=== PATIENT | female | born 1995 | race Caucasian/White ===

== ENCOUNTER 2018-08-12 20:48 | Emergency (ER) | payer OTHER ==
[~2018-08-12] VITALS: Ht 157.5 cm; Wt 69.4 kg
[2018-08-12] MEDS ORDERED: KETOROLAC 30 MG/ML VIAL IVP STA (21:34)
[2018-08-12] MEDS ORDERED: CYCLOBENZAPRINE 10 MG (FLEXERIL) TAB PO STA (21:34)
[2018-08-12 21:42] LABS: BILIRUBIN,URINE NEGATIVE (NEGATIVE); CLARITY,URINE CLEAR; COLOR,URINE YELLOW; GLUCOSE, URINE (UA) NEGATIVE (NEGATIVE); KETONES,URINE NEGATIVE (NEGATIVE); LEUKOCYTE ESTERASE ,URINE 1+ (NEGATIVE); NITRITE,URINE NEGATIVE (NEGATIVE); PH,URINE 6.5 (5-9); PROTEIN,URINE NEGATIVE (NEGATIVE); UROBILINOGEN,URINE NORMAL (NORMAL)
[2018-08-12 21:46] LABS: BASOPHILS # (AUTO) 0.1 10^3/uL (0.0-0.1); BASOPHILS % (AUTO) 1 % (0-10); EOSINOPHILS # (AUTO) 0.1 10^3/uL (0.0-0.3); EOSINOPHILS % (AUTO) 2 % (0-10); HEMATOCRIT 35 % (35-52); HEMOGLOBIN 10.6 G/DL (11.5-16.0); LYMPHOCYTES # (AUTO) 2.2 X 10^3 (1.0-4.0); LYMPHOCYTES % (AUTO) 32 % (12-44); MEAN CORPUSCULAR HEMOGLOBIN 26 PG (25-34); MEAN CORPUSCULAR HGB CONC 31 G/DL (32-36); MEAN CORPUSCULAR VOLUME 85 FL (80-99); MEAN PLATELET VOLUME 10.7 FL (7.4-10.4); MONOCYTES # (AUTO) 0.7 X 10^3 (0.0-1.0); MONOCYTES % (AUTO) 11 % (0-12); NEUTROPHILS # (AUTO) 3.8 X 10^3 (1.8-7.8); NEUTROPHILS % (AUTO) 55 % (42-75); PLATELET COUNT 320 10^3/uL (130-400); RED CELL DISTRIBUTION WIDTH 15.4 % (10.0-14.5); WHITE BLOOD COUNT 6.8 10^3/uL (4.3-11.0)
[2018-08-12 21:48] LABS: BACTERIA,URINE TRACE /HPF; WBC,URINE 0-2 /HPF
[2018-08-12 21:52] LABS: AMPHETAMINE SCREEN, URINE NEGATIVE (NEGATIVE); BARBITURATE SCREEN URINE NEGATIVE (NEGATIVE); BENZODIAZEPINES SCREEN URINE NEGATIVE (NEGATIVE); CANNABINOID SCREEN, URINE NEGATIVE (NEGATIVE); COCAINE SCREEN URINE NEGATIVE (NEGATIVE); METHADONE STAT NEGATIVE (NEGATIVE); METHAMPHETAMINE SCREEN URINE S NEGATIVE (NEGATIVE); OPIATE SCREEN URINE NEGATIVE (NEGATIVE); OXYCODONE STAT NEGATIVE (NEGATIVE); PROPOXYPHENE STAT NEGATIVE (NEGATIVE); TRICYCLIC ANTIDEPRESSANTS SCRE NEGATIVE (NEGATIVE)
--- NOTE | 2018-08-12 21:59 | Diagnostic Imaging Report ---
INDICATION: Low back pain. Time of exam: 9:44 PM Curvature and alignment of lumbar spine is normal. Vertebral body heights are well maintained. Disc spaces are preserved. No fracture or subluxation is seen. IMPRESSION: No acute bony abnormality is detected. Dictated by: Dictated on workstation # [id number]
[2018-08-12 22:11] LABS: ALANINE AMINOTRANSFERASE 16 U/L (0-55); ALBUMIN 4.3 GM/DL (3.2-4.5); ALKALINE PHOSPHATASE 52 U/L (40-136); BILIRUBIN,TOTAL 0.7 MG/DL (0.1-1.0); BUN/CREATININE RATIO 7; CALCIUM 9.6 MG/DL (8.5-10.1); CARBON DIOXIDE 23 MMOL/L (21-32); CHLORIDE 105 MMOL/L (98-107); CREATININE SERUM 1.11 MG/DL (0.60-1.30); GFR ESTIMATED > 60; GLUCOSE 91 MG/DL (70-105); POTASSIUM 3.7 MMOL/L (3.6-5.0); SODIUM 140 MMOL/L (135-145); TOTAL PROTEIN 7.4 GM/DL (6.4-8.2)
[2018-08-12] MEDS ORDERED: CYCL10TA9 PO (22:14)
--- NOTE | 2018-08-12 22:14 | ED Back Pain ---
General Chief Complaint: Back Problems Stated Complaint: BACK PAIN Nursing Triage Note: Pt amb to room #9 w/o difficulty. a&ox4. Language line used for triage. Reports lower, medial back pain radiating to bilat knees. Denies loss of bowel or bladder control. Denies urinary symptomsm. Denies injury. Reports to have been seen @ [facility] on this day where blood work was taken, pt was sent home, and advised to be seen in ED if pain continues. Nursing Sepsis Screen: No Definite Risk History of Present Illness Date Seen by Provider: Aug 12, 2018 Time Seen by Provider: 21:30 Initial Comments 22-year-old speaking female presents for back pain radiating to bilateral knees. She denies an injury. She has not been taking any medication for her symptoms. She was seen at [facility] earlier today for similar complaints and referred here if s/s worsened. She denies any past history of surgeries to her spine or injuries to her low back. Location: Lumbar Spine, Paraspinous Muscles Timing/Duration: 24 Hours Severity: Mild Pain/Injury Location: Back Radiation: Upper Legs Method of Injury: Unknown Associated Symptoms: muscle spasms; No numbness in legs/feet, No tingling in legs/feet, No sensory/motor loss; lower back pain; No loss of bladder control, No loss of bowel control Allergies and Home Medications Allergies Coded Allergies: No Known Drug Allergies (Unverified , 08/12/18) Home Medications Cyclobenzaprine HCl 10 Mg Tablet, 10 MG PO Q8H PRN for SPASMS Prescribed by: WALTER PANDA on 08/12/18 9724 Patient Home Medication List Home Medication List Reviewed: Yes Review of Systems Constitutional: no symptoms reported, see HPI Musculoskeletal: see HPI, back pain, muscle pain All Other Systems Reviewed Negative Unless Noted: Yes Past Jdixksa-Rzbsfy-Laqjjf Hx Past Med/Social Hx: Reviewed Nursing Past Med/Soc Hx Patient Social History Alcohol Use: Rarely Uses Recreational Drug Use: No Smoking Status: Never a Smoker 2nd Hand Smoke Exposure: No Recent Foreign Travel: No Contact w/Someone Who Travel: No Recent Infectious Disease Expo: No Recent Hopitalizations: No Seasonal Allergies Seasonal Allergies: No Past Medical History Surgeries: Yes Orthopedic Respiratory: No Cardiac: No Neurological: No Genitourinary: No Gastrointestinal: No Musculoskeletal: No Endocrine: No HEENT: No Cancer: No Psychosocial: No Integumentary: No Physical Exam Vital Signs Vital Signs - First Documented 08/12/18 21:13 Temp 96.8 Pulse 77 Resp 17 B/P (MAP) 134/91 (105) Pulse Ox 99 O2 Delivery Room Air Capillary Refill : Less Than 3 Seconds Height, Weight, BMI Height: 5'2.00" Weight: 153lbs. oz. 69.866795vz; BMI Method:Stated General Appearance: No Apparent Distress, WD/WN Neck: Full Range of Motion, Normal Inspection, Non Tender Cardiovascular: Regular Rate, Rhythm, No Edema, No Murmur, Normal Peripheral Pulses Respiratory: Chest Non Tender, Lungs Clear, Normal Breath Sounds Gastrointestinal: Normal Bowel Sounds, No Pulsatile Mass, Non Tender, Soft Back: Normal Inspection, Decreased Range of Motion (secondary to pain), Muscle Spasm, Vertebral Tenderness, Other (Power V/V L4-S1. Neg SLR. Amb with steady gait, able to toe and heel walk. Knees, without effusion, full ROM. ) Extremity: Normal Capillary Refill, Normal Inspection, Normal Range of Motion, No Pedal Edema Neurologic/Psychiatric: Alert, Oriented x3, No Motor/Sensory Deficits, Normal Mood/Affect Skin: Normal Color, Warm/Dry Progress/Results/Core Measures Results/Orders Lab Results Laboratory Tests Test 08/12/18 21:23 08/12/18 21:33 Range/Units White Blood Count 6.8 4.3-11.0 10^3/uL Red Blood Count 4.08 L 4.35-5.85 10^6/uL Hemoglobin 10.6 L 11.5-16.0 G/DL Hematocrit 35 35-52 % Mean Corpuscular Volume 85 80-99 FL Mean Corpuscular Hemoglobin 26 25-34 PG Mean Corpuscular Hemoglobin Concent 31 L 32-36 G/DL Red Cell Distribution Width 15.4 H 10.0-14.5 % Platelet Count 320 130-400 10^3/uL Mean Platelet Volume 10.7 H 7.4-10.4 FL Neutrophils (%) (Auto) 55 42-75 % Lymphocytes (%) (Auto) 32 12-44 % Monocytes (%) (Auto) 11 0-12 % Eosinophils (%) (Auto) 2 0-10 % Basophils (%) (Auto) 1 0-10 % Neutrophils # (Auto) 3.8 1.8-7.8 X 10^3 Lymphocytes # (Auto) 2.2 1.0-4.0 X 10^3 Monocytes # (Auto) 0.7 0.0-1.0 X 10^3 Eosinophils # (Auto) 0.1 0.0-0.3 10^3/uL Basophils # (Auto) 0.1 0.0-0.1 10^3/uL Sodium Level 140 135-145 MMOL/L Potassium Level 3.7 3.6-5.0 MMOL/L Chloride Level 105 98-107 MMOL/L Carbon Dioxide Level 23 21-32 MMOL/L Anion Gap 12 5-14 MMOL/L Blood Urea Nitrogen 8 7-18 MG/DL Creatinine 1.11 0.60-1.30 MG/DL Estimat Glomerular Filtration Rate > 60 BUN/Creatinine Ratio 7 Glucose Level 91 70-105 MG/DL Calcium Level 9.6 8.5-10.1 MG/DL Corrected Calcium 9.4 8.5-10.1 MG/DL Total Bilirubin 0.7 0.1-1.0 MG/DL Aspartate Amino Transf (AST/SGOT) 22 5-34 U/L Alanine Aminotransferase (ALT/SGPT) 16 0-55 U/L Alkaline Phosphatase 52 40-136 U/L Total Protein 7.4 6.4-8.2 GM/DL Albumin 4.3 3.2-4.5 GM/DL Urine Color YELLOW Urine Clarity CLEAR Urine pH 6.5 5-9 Urine Specific [place] 1.015 L 1.016-1.022 Urine Protein NEGATIVE NEGATIVE Urine Glucose (UA) NEGATIVE NEGATIVE Urine Ketones NEGATIVE NEGATIVE Urine Nitrite NEGATIVE NEGATIVE Urine Bilirubin NEGATIVE NEGATIVE Urine Urobilinogen NORMAL NORMAL MG/DL Urine Leukocyte Esterase 1+ H NEGATIVE Urine RBC (Auto) NEGATIVE NEGATIVE Urine RBC NONE /HPF Urine WBC 0-2 /HPF Urine Squamous Epithelial Cells 10-25 H /HPF Urine Crystals NONE /LPF Urine Bacteria TRACE /HPF Urine Casts NONE /LPF Urine Mucus SMALL H /LPF Urine Culture Indicated NO Urine Opiates Screen NEGATIVE NEGATIVE Urine Oxycodone Screen NEGATIVE NEGATIVE Urine Methadone Screen NEGATIVE NEGATIVE Urine Propoxyphene Screen NEGATIVE NEGATIVE Urine Barbiturates Screen NEGATIVE NEGATIVE Ur Tricyclic Antidepressants Screen NEGATIVE NEGATIVE Urine Phencyclidine Screen NEGATIVE NEGATIVE Urine Amphetamines Screen NEGATIVE NEGATIVE Urine Methamphetamines Screen NEGATIVE NEGATIVE Urine Benzodiazepines Screen NEGATIVE NEGATIVE Urine Cocaine Screen NEGATIVE NEGATIVE Urine Cannabinoids Screen NEGATIVE NEGATIVE My Orders Orders - AMARILYS,WALTER MOLD COOLER Drug Screen Stat (Urine) (08/12/18 20:59) Ua Culture If Indicated (08/12/18 20:59) Urine Bedside (08/12/18 20:59) Ketorolac Injection (Toradol Injection) (08/12/18 21:34) Cyclobenzaprine Tablet (Flexeril Tablet) (08/12/18 21:34) Lumbar Spine - 2-3 Views (08/12/18 21:35) Cbc With Automated Diff (08/12/18 21:35) Comprehensive Metabolic Panel (08/12/18 21:35) Vital Signs/I&O 08/12/18 08/12/18 21:13 22:33 Temp 96.8 96.8 Pulse 77 73 Resp 17 16 B/P (MAP) 134/91 (105) 136/86 (103) Pulse Ox 99 99 O2 Delivery Room Air Room Air Blood Pressure Mean: 105 Diagnostic Imaging Diagonstic Imaging: Xray Plain Films/CT/US/NM/MRI: other (L Spine) Comments NAME: LINDSEY HALL [facility] REC#: [id number] PHYSICIAN: WALTER PANDA CC: SIOMARA VALDEZ MD; WALTER PANDA Page 1 of 1 RADIOLOGY REPORT [facility]. [place], [place] CC: SIOMARA VALDEZ MD; WALTER PANDA Page 1 of 1 RADIOLOGY REPORT NAME: LINDSEY HALL [facility] REC#: [id number] PT STATUS: REG ER : 1995 PHYSICIAN: WALTER PANDA ADMIT DATE: 08/12/18/ER Signed Date of Exam: 08/12/18 LUMBAR SPINE - 2-3 VIEWS INDICATION: Low back pain. Time of exam: 9:44 PM Curvature and alignment of lumbar spine is normal. Vertebral body heights are well maintained. Disc spaces are preserved. No fracture or subluxation is seen. IMPRESSION: No acute bony abnormality is detected. Dictated by: Dictated on workstation # [id number] Dict: 08/12/182150 Trans: 08/12/182158 Interpreted by: SIOMARA VALDEZ MD Electronically signed by: SIOMARA VALDEZ MD 08/12/182158 Departure Impression Primary Impression: Back pain Qualified Codes: M54.42 - Lumbago with sciatica, left side; M54.41 - Lumbago with sciatica, right side Disposition: 01 HOME, SELF-CARE Condition: Improved Departure-Patient Inst. Decision time for Depature: 22:15 Referrals: [facility]/K (PCP/Family) Primary Care Physician Patient Instructions: Low Back Pain (DC), Muscle Strain (DC) Add. Discharge Instructions: Ice to low back 20 minutes every 2 hours while awake. Follow-up at [facility] if symptoms are not improving or worsen. Alternate between Tylenol 650 mg and ibuprofen 600 mg every 4 hours for pain. Take muscle relaxant as directed. Return to emergency department for new, urgent health care needs. All discharge instructions reviewed with patient and/or family. Voiced understanding. Scripts Cyclobenzaprine HCl (Cyclobenzaprine HCl) 10 Mg Tablet 10 MG PO Q8H PRN for SPASMS, #15 TAB 0 Refills Prov: WALTER PANDA 08/12/18 WALTER PANDA Aug 12, 2018 22:14
[2018-08-12 22:33] VITALS: BP 136/86
--- NOTE | 2018-08-12 22:33 | NUR ---
Language line used to review discharge instructions with pt whom voices no further questions or concerns.
--- OUTSIDE RECORDS SUMMARY | 2018-08-13 06:07 | XMS REPORT | Continuity of Care Document ---
Author Organization Unknown Address Unknown Allergies There is no data. Medications There is no data. Problems There is no data. Procedures There is no data. Results Test Result Range CULTURE, THROAT - 07/31/18 09:44 CULTURE, THROAT SEE NOTE NRG Encounters ACCT No. Visit Date/Time Discharge Status Pt. Type Provider Facility Loc./Unit Complaint [id number] 08/12/2018 15:00:00 ACT Outpatient [facility] [id number] 07/31/2018 08:55:00 Document Registration
== END 2018-08-12 22:33 | disposition home or self-care (01) ==
LOC: ER 20:50
DX: M54.5 Low back pain (principal)
CPT/HCPCS: 36415; 72100; 80053; 80306; 81000; 84703; 85025